=== PATIENT | female | born 1935 | race Caucasian/White ===

== ENCOUNTER 2017-05-04 15:39 | Emergency (ER) | payer MEDICARE ==
[~2017-05-04] VITALS: Ht 162.6 cm; Wt 90.0 kg
[~2017-05-04 15:39] MED LIST: ALAVERT10 MG PO; AMOXICILLIN/CL500 MG PO; ASPIRIN81 MG PO; C 250 PO; CALCIUM600 M1 PO; COD LIVER PO; HUMALOG KWI100 MG/ML SC; LANTUS SOLOSTAR SC; MEDDOSEPAK PO; SYNTHROID25 MCG PO; TRIAMCINOLON0.11 EX; VIT A & D PO; VITAMIN C1000 MG PO; VITAMIN D31000 UNI1 PO; VITAMIN D400 UNI1 PO
[2017-05-04 16:38] LABS: HEMATOCRIT 31.2 % (37.0-47.0); IMMATURE GRANULOCYTES 0.3 % (0.0-1.0); MEAN CELL VOLUME 88.9 fL CALC (80.0-100.0); MEAN CORPUSCULAR HGB 28.5 pG CALC (26.0-32.0); MEAN CORPUSCULAR HGB CONC 32.1 g/L CALC (32.0-36.0); NEUT# 2.39 thou/uL (2.00-7.15); RED BLOOD COUNT 3.51 mill/uL (4.20-5.60); RED CELL DISTRI WIDTH 13.7 % (11.5-15.5)
[2017-05-04 16:41] LABS: URINE BILIRUBIN - DIPSTICK NEGATIVE (NEGATIVE); URINE BLOOD DIPSTICK TRACE-INTACT (NEGATIVE); URINE CLARITY CLOUDY; URINE COLOR YELLOW; URINE GLUCOSE - DIPSTICK NEGATIVE (NEGATIVE); URINE KETONE NEGATIVE (NEGATIVE); URINE LEUK ESTERASE MODERATE (NEGATIVE); URINE NITRITE - DIPSTICK NEGATIVE (Negative); URINE PROTEIN - DIPSTICK NEGATIVE (NEG-TRACE); URINE SPECIFIC GRAVITY <=1.005; URINE UROBILINOGEN - DIPSTICK 0.2 E.U./dL (0.2)
[2017-05-04 16:48] LABS: URINE RBC 0-2 RBC/hpf (0-5)
[2017-05-04 16:49] LABS: URINE BACTERIA MANY hpf; URINE SQUAMOUS EPITHELIAL CELL FEW EPI/hpf (0-FEW); URINE WBC 50-100 WBC/hpf (0-5)
[2017-05-04 16:51] LABS: ALBUMIN 4.4 g/dL (3.2-5.0); ALKALINE PHOSPHATASE 64 u/l (38-126); ANION GAP 15 (6-22 (CALC)); BILIRUBIN, TOTAL 0.6 mg/dL (0.0-1.4); BUN 30 mg/dL (8-23); BUN/CREATININE RATIO 25 (12-20 (CALC)); CALCIUM 9.2 mg/dL (8.4-10.2); CARBON DIOXIDE 24 mmol/l (22-30); CHLORIDE 98 mmol/l (95-108); CREATININE 1.2 mg/dL (0.5-1.0); GFR 43 ML/MIN (>=60 (CALC)); GFR FOR AFR.AMER. 52 ML/MIN (>=60 (CALC)); GLUCOSE 134 mg/dL (82-115); POTASSIUM 4.4 mmol/l (3.5-5.1); SGOT/AST 32 u/l (9-36); SGPT/ALT 29 u/l (11-66); SODIUM 133 mmol/l (137-146); TOTAL PROTEIN 7.4 g/dL (6.3-8.2)
[2017-05-04] MEDS ORDERED: BACTRIM DS1 TAB PO (16:57)
[2017-05-04 17:03] LABS: MYOGLOBIN 48 ng/mL (0 - 62)
[2017-05-04 17:14] VITALS: BP 169/76
== END 2017-05-04 17:27 | disposition home or self-care (01) ==
LOC: ED 15:39
PROVIDERS: Emergency Medicine
DX: N39.0 Urinary tract infection, site not specified (principal); B96.20 Unspecified Escherichia coli [E. coli] as the cause of diseases classified elsewhere; R53.81 Other malaise; E11.9 Type 2 diabetes mellitus without complications; Z79.4 Long term (current) use of insulin; Z79.82 Long term (current) use of aspirin

== ENCOUNTER 2022-06-16 09:40 | Emergency (ER) | payer MEDICARE ==
[2022-06-16] VITALS (11 sets, daily range): BP systolic 132–163; BP diastolic 62–83
[~2022-06-16] VITALS: Ht 162.6 cm; Wt 78.7 kg
[~2022-06-16 09:40] MED LIST changes: +BACTRIM DS1 TAB PO; +HUMALOG KW100 UNIT/M SC; +TRESIBA FL200 UNIT/M SC
[2022-06-16] MEDS ORDERED: DICLOFENAC SODIUM1 % TD ×2 (12:19→12:36)
== END 2022-06-16 12:35 | disposition home or self-care (01) ==
LOC: ED 09:40
DX: S83.92XA Sprain of unspecified site of left knee, initial encounter (principal); E10.9 Type 1 diabetes mellitus without complications; W01.0XXA Fall on same level from slipping, tripping and stumbling without subsequent striking against object, initial encounter; Y92.000 Kitchen of unspecified non-institutional (private) residence as the place of occurrence of the external cause; Z79.4 Long term (current) use of insulin